=== PATIENT | male | born 1955 | race Caucasian/White ===

== ENCOUNTER → 2024-05-13 06:21 | Day surgery (SDC) | payer OTHER, SELFPAY ==
[2024-05-13 07:18] LABS: Glucose - Point of Care 168 mg/dl (70-99)
== END ==
LOC: GI 06:21
PROVIDERS: ATTENDING PHYSICIAN Internal Medicine
DX: Z12.11 Encounter for screening for malignant neoplasm of colon (principal); R19.5 Other fecal abnormalities; K64.8 Other hemorrhoids; K57.30 Diverticulosis of large intestine without perforation or abscess without bleeding; K55.20 Angiodysplasia of colon without hemorrhage; D49.0 Neoplasm of unspecified behavior of digestive system; D12.5 Benign neoplasm of sigmoid colon; D12.2 Benign neoplasm of ascending colon; K62.1 Rectal polyp
CPT/HCPCS: 45385; 45381; 45380; 88305; 82962

== ENCOUNTER 2024-07-22 06:11 | Day surgery (SDC) | payer OTHER, SELFPAY ==
[2024-07-22 10:15] VITALS: BMI 36.9
[2024-07-22 10:16] VITALS: BP 147/86; BMI 36.9
[2024-07-22 10:22] LABS: Glucose - Point of Care 161 mg/dl (70-99)
[2024-07-22 12:38] LABS: Glucose - Point of Care 184 mg/dl (70-99)
[2024-07-22 15:04] VITALS: BP 126/91
[2024-07-22 15:15] VITALS: BP 116/92
[2024-07-22 15:30] VITALS: BP 133/87
[2024-07-22 15:45] VITALS: BP 136/95
== END 2024-07-22 16:05 | disposition home or self-care (01) ==
LOC: SDS 06:11
PROVIDERS: ATTENDING PHYSICIAN Internal Medicine Gastroenterology
DX: C18.2 Malignant neoplasm of ascending colon (principal); K57.30 Diverticulosis of large intestine without perforation or abscess without bleeding; K64.0 First degree hemorrhoids
CPT/HCPCS: 45390; 88305; 82962; 88342

== ENCOUNTER → 2024-08-17 08:54 | Outpatient (REF) | payer OTHER, SELFPAY | LOC: RAD 08:54 | PROVIDERS: ATTENDING PHYSICIAN Surgery; FAMILY PHYSICIAN Family Medicine | DX: C18.9 Malignant neoplasm of colon, unspecified (principal) | CPT/HCPCS: 71260; 74177; Q9967 ==

== ENCOUNTER 2024-09-02 11:44 | Inpatient (IN) | payer OTHER, SELFPAY ==
[2024-08-20 10:51] LABS: Hematocrit 43.6 % (39.0-52.0); Hemoglobin 15.6 g/dL (13.0-18.0); Mean Corp Hgb Conc. 35.8 g/dL (33.0-37.0); Mean Corpuscular Hgb 31.5 pg (27.0-31.0); Mean Corpuscular Volume 88.1 fL (80.0-94.0); Mean Platelet Volume 10.6 fL (7.4-10.4); Platelet Count 243 10^3/uL (130-400); Red Blood Cell Count 4.95 10^6/uL (4.70-6.10); Red Cell Dist. Width 12.4 % (11.5-14.5); White Blood Cell Count 7.5 10^3/uL (4.8-10.8)
[2024-08-20 11:01] LABS: INR 0.93; PT 12.8 Sec (11.4-14.6)
[2024-08-20 11:02] LABS: APTT 29.6 Sec (23.4-35.0)
[2024-08-20 11:30] LABS: ALT (SGPT) 24 U/L (0-50); AST (SGOT) 19 U/L (17-59); Albumin 4.3 g/dl (3.5-5.0); Alkaline Phosphatase 78 U/L (38-126); Blood Urea Nitrogen 18 mg/dl (9-20); Calcium 9.6 mg/dl (8.4-10.2); Carbon Dioxide 29 mmol/L (22-30); Chloride 97 mmol/L (98-107); Glucose 186 mg/dl (70-99); Potassium 4.6 mmol/L (3.5-5.1); Sodium 134 mmol/L (135-145); Total Bilirubin 0.4 mg/dl (0.2-1.3); Total Protein 6.6 g/dl (6.3-8.2); eGFR > 60.00
[2024-08-20 11:58] LABS: CEA 2.24 ng/ml
[2024-08-20 12:46] LABS: Glycohemoglobin (HgbA1c) 7.1 % (4.0-5.6)
[2024-08-20 13:57] VITALS: BMI 36.7
--- NOTE | 2024-08-26 10:16 | PTCARENOTE ---
Patients 08/20 A1C 7.1- Marcia @ Dr. Back office notified
[2024-09-02] VITALS (10 sets, daily range): BP systolic 129–151; BP diastolic 86–100; BMI 36.7
[2024-09-02] MEDS: NEURONTIN 600 MG PO (12:46)
[2024-09-02] MEDS: ENTEREG 12 MG PO (12:46)
[2024-09-02] MEDS: TYLENOL 1000 MG PO (12:46)
[2024-09-02] MEDS: HEPARIN 5000 UNITS SC (12:47)
[2024-09-02 13:31] LABS: Glucose - Point of Care 138 mg/dl (70-99)
[2024-09-02 15:42] LABS: Glucose - Point of Care 134 mg/dl (70-99)
--- NOTE | 2024-09-02 20:34 | W.OR.COLCA ---
Addendum entered and electronically signed by Dustin Dial MD 09/02/24 20:42:
Patient's and son updated in waiting area.
Original Note:
Colon Cancer Post Op Note
Immediate Post Op
Primary Surgeon: Adi Dial MD
Assisting Surgeon: NINFA Terry
Pre-op Diagnosis: right colon cancer
Post-op Diagnosis: same
Procedure Performed: robotic right colectomy
Anesthesia Type: general plus local
Specimen / Cultures: right colon
Estimated Blood Loss: 100 cc
Complications: no immediate
Operative Findings: 1) ascending colon tattoo and associated mucosal clip marking EMR site 2) no obvious metastatic disease
Nunez in bladder.
Will send to med surg.
Colon Resection
Colon Resection
Operation performed with curative intent: Yes
Tumor Location: Ascending Colon
Right Hemicolectomy: Ileocolic and Right Colic
Other: patient s/p EMR of ascending colon polyp that came back adenocarcinoma
--- NOTE | 2024-09-02 20:51 | CON.HOSP ---
Family Physician
-
Family Physician: Dustin Martinez
Chief Complaint
-
status post robotic right colectomy
History of Present Illness
Mr. Anand Mendoza is a 69 yo man with hx essential HTN, HLD, DM, right colon cancer status post robotic right colectomy today. Medicine is asked to consult for medical management.
Patient seen post-op. He is groggy, denies significant pain. No chest pain or shortness of breath.
Medical History
Past Medical History
Past Medical History: Reports Other ( essential HTN, HLD, DM, right colon cancer status post robotic right colectomy 09/02/24)
Past Surgical History: Reports Other (see above )
Social History
Tobacco: Former Smoker
Alcohol: Occasional
Family History
Family History: Reviewed & Not Pertinent
Allergies / Home Medications
Allergies reflects when Allergies were last updated in [facility].
Home Medications with original date entered in [facility]
Allergy/Medication List:
Allergies
Allergy/AdvReac Type Severity Reaction Status Date / Time
No Known Allergies Allergy Verified 09/02/24 12:37
Home Medications
atorvastatin 10 mg tablet 10 mg PO HS 07/22/24
hydrochlorothiazide 25 mg tablet 25 mg PO DAILY 07/22/24
lisinopril 40 mg tablet 40 mg PO QPM 07/22/24
metformin 1,000 mg tablet 1,000 mg PO BID 07/22/24
repaglinide 2 mg tablet 2 mg PO TID 07/22/24
Nervive Tab 1 tab PO DAILY 08/26/24
semaglutide 1 mg/dose (4 mg/3 mL) subcutaneous pen injector (Ozempic) 1 mg SC FR 08/26/24
Review of Systems
-
History Source: Patient
A 12 point Review of Systems was completed except as noted: Yes
Physical Exam
Physical Exam
General: No Apparent Distress
HEENT: PERRLA
Respiratory: Clear; Negative Wheezes
Cardiac: S1/S2 and Regular Rhythm
GI: Other (surgical incision c/d/i)
Musculoskeletal: No Edema
Skin: Warm and Dry; Negative Rash
Neuro: AO x 3
Psych: Calm
Laboratory Results
-
PT 12.8 Sec (11.4-14.6) 08/20/24 09:30
INR 0.93 08/20/24 09:30
APTT 29.6 Sec (23.4-35.0) 08/20/24 09:30
Total Bilirubin 0.4 mg/dl (0.2-1.3) 08/20/24 09:30
AST 19 U/L (17-59) 08/20/24 09:30
ALT 24 U/L (0-50) 08/20/24 09:30
Alkaline Phosphatase 78 U/L (38-126) 08/20/24 09:30
Data Reviewed
-
Diagnostic Radiology: Report Reviewed by Me
Lab Data: Labs Reviewed
Impression / Plan
-
Mr. Anand Mendoza is a 69 yo man with hx essential HTN, HLD, DM, right colon cancer status post robotic right colectomy today. Medicine is asked to consult for medical management.
Right Colon Cancer
-s/p robotic right Colectomy by Dr. Dial today
-plan per CRS
-NPO except medications
-IVF
-standing IV Toradol, IV Dilaudid PRN, Reglan PRN
-BID Alvimopan
-standing Protonix
Essential HTN
-hold [employer] HCTZ
-SBP 150's in PACU, Ok to continue [employer] Lisinopril tomorrow with hold parameters
HLD
-hold statin while NPO
DM
-hold [employer] oral meds: Metformin, Repaglinide, Ozempic
-ISS low
DVT PPx
FULL CODE
[2024-09-02 20:56] LABS: Glucose - Point of Care 188 mg/dl (70-99)
[2024-09-02 21:13] LABS: % Basophils 0.2 % (0-2); % Immature Granulocytes 0.9 % (0-0.5); % Lymphocytes 5.6 % (20.5-51.1); % Neutrophils 90.3 % (42.2-75.2); Absolute Immature Granulocytes 0.2 10^3/uL (0-0.05); Absolute Lymphocytes 1.1 10^3/uL (1.2-3.4); Absolute Monocytes 0.6 10^3/uL (0.1-0.6); Absolute Neutrophils 17.2 10^3/uL (1.4-6.5); Hemoglobin 15.2 g/dL (13.0-18.0); Mean Corp Hgb Conc. 34.5 g/dL (33.0-37.0); Mean Corpuscular Hgb 31.3 pg (27.0-31.0); Mean Corpuscular Volume 90.7 fL (80.0-94.0); Nucleated Red Blood Cells % 0 % (-); Platelet Count 279 10^3/uL (130-400); Red Blood Cell Count 4.85 10^6/uL (4.70-6.10); Red Cell Dist. Width 12.4 % (11.5-14.5); White Blood Cell Count 19.1 10^3/uL (4.8-10.8)
[2024-09-02 21:29] LABS: Blood Urea Nitrogen 14 mg/dl (9-20); Calcium 8.6 mg/dl (8.4-10.2); Carbon Dioxide 23 mmol/L (22-30); Estimated Creatinine Clearance 120 ml/min; Glucose 206 mg/dl (70-99); Magnesium 2.1 mg/dl (1.6-2.3); eGFR > 60.00
[2024-09-02 21:41] LABS: Chloride 94 mmol/L (98-107); Potassium 4.4 mmol/L (3.5-5.1); Sodium 130 mmol/L (135-145)
[2024-09-02] MEDS: NORMOSOL-R/PLASMALYTE-A 1000 IV (22:15)
--- NOTE | 2024-09-02 23:00 | PTCARENOTE ---
Received patient from PACU. Pt AAOX3, Drowsy, family at bedside. stable vitals. No complaints at this time. Nunez cath draining yellow urine. Abdominal surgical sites CDI. POC reviewed with patient and family.
[2024-09-03] VITALS (7 sets, daily range): BP systolic 123–149; BP diastolic 67–90; PULSE 79; O2SAT 99; BMI 36.9
[2024-09-03] MEDS: TORADOL 10 MG IV ×5 (00:07→23:50)
[2024-09-03] MEDS: TYLENOL 650 MG PO ×7 (00:07→23:50)
[2024-09-03 00:11] LABS: Glucose - Point of Care 215 mg/dl (70-99)
[2024-09-03] MEDS: NOVOLOG FLEXPEN-LOW RESISTANCE 2 UNITS SC ×2 (00:45→06:23)
[2024-09-03 06:12] LABS: Glucose - Point of Care 206 mg/dl (70-99)
[2024-09-03] MEDS: NORMOSOL-R/PLASMALYTE-A 1000 IV ×2 (06:26→18:21)
[2024-09-03 06:37] LABS: % Basophils 0.1 % (0-2); % Immature Granulocytes 0.3 % (0-0.5); % Lymphocytes 5.4 % (20.5-51.1); % Monocytes 4.9 % (1.7-9.3); % Neutrophils 89.3 % (42.2-75.2); Absolute Lymphocytes 0.7 10^3/uL (1.2-3.4); Absolute Monocytes 0.6 10^3/uL (0.1-0.6); Hemoglobin 14.5 g/dL (13.0-18.0); Mean Corp Hgb Conc. 35.4 g/dL (33.0-37.0); Mean Corpuscular Hgb 31.1 pg (27.0-31.0); Nucleated Red Blood Cells % 0 % (-); Platelet Count 273 10^3/uL (130-400); Red Blood Cell Count 4.66 10^6/uL (4.70-6.10); Red Cell Dist. Width 12.2 % (11.5-14.5); White Blood Cell Count 12.3 10^3/uL (4.8-10.8)
[2024-09-03 06:58] LABS: Blood Urea Nitrogen 15 mg/dl (9-20); Calcium 8.4 mg/dl (8.4-10.2); Carbon Dioxide 23 mmol/L (22-30); Chloride 95 mmol/L (98-107); Estimated Creatinine Clearance > 125 ml/min; Glucose 235 mg/dl (70-99); Magnesium 2.2 mg/dl (1.6-2.3); Potassium 4.5 mmol/L (3.5-5.1); Sodium 130 mmol/L (135-145); eGFR > 60.00
[2024-09-03] MEDS: PROTONIX 40 MG PO (09:25)
[2024-09-03] MEDS: ENTEREG 12 MG PO ×2 (09:26→19:40)
--- NOTE | 2024-09-03 09:46 | W.PN.HOSP.TC ---
Today's Communication/Plan
-
see PN
Assessment / Plan
Assessment / Plan
69 yo man with hx essential HTN, HLD, DM, right colon cancer status post robotic right colectomy on 09/02/24 due to right colon cancer
A/P:
#R colon adenocarcinoma
s/p hemicolectomy
Outpatient Onc and ColorectalSx
Advance diet as per surgery
Pain mgmt
IVF
#Leukocytosis
reactive, postOP
improving off Abx
#Mild hyponatremia
check urine osm
follow BMP
#DM type 2 with neuropathy
Accuchecks, Insulin SS, DM diet whren appropriate
Hold oral antiglycemics
#Essential HTN
#HLD
Hold HCTZ
cont Lisinopril
FOllow BP trend
DVT ppx lovenox
Full code
I have spent at least 53min reviewing chart, test results, communication with familoy and direct patient care
Anticipated Discharge: > 48 hours
Subjective/Interval History
-
Date of Service: September 03, 2024
Objective Data
-
Labs:
Laboratory Results
09/03/24
06:02
WBC 12.3 H
Hgb 14.5
Hct 41.0
Plt Count 273
Sodium 130 L
Potassium 4.5
Chloride 95 L
Carbon Dioxide 23
BUN 15
Creatinine 0.7
Glucose 235 H
Calcium 8.4
Vital Signs:
Vital Signs
Temp Pulse Resp BP Pulse Ox
97.3 F 91 16 145/77 97
09/03/24 07:30 09/03/24 07:30 09/03/24 07:30 09/03/24 07:30 09/03/24 07:30
I&O
09/02/24 09/03/24 09/04/24
06:59 06:59 06:59
Intake Total 900 / 900
Output Total 840 / 840
Balance
Review of Systems
-
History Source: Patient
All other systems: Reviewed and negative
Physical Exam
-
General: No Apparent Distress
HEENT: Normocephalic
Respiratory: Clear to Auscultation
Cardiac: Regular Rhythm
GI: Soft, Nontender, Nondistended and Normal Bowel Sounds
Musculoskeletal: No Clubbing, No Cyanosis and No Edema
Neuro: Awake, Alert, Oriented and AO x 3
Psych: Calm
--- NOTE | 2024-09-03 10:10 | W.PN.CRS1 ---
Today's Communication / Plan
-
Clears.
Out of bed.
Lovenox.
DC Nunez.
Assessment/Plan
-
POD 1.
1. Afebrile. Heart rate 100 overnight, now 91. Will watch.
2. Urine output reasonable. Will have nursing DC Nunez.
3. Out of bed/PT.
4. Trial clears.
5. Lovenox.
6. Appreciate hospitalist help.
Subjective Data
Procedure
Robotic right colectomy on 09/02/2024.
Subjective Data
Date of Service: September 03, 2024
Sitting up in chair. No complaints. No nausea. Thirsty and hungry.
Objective Data
-
Vital Signs
Temp Pulse Resp BP Pulse Ox
97.3 F 91 16 145/77 97
09/03/24 07:30 09/03/24 07:30 09/03/24 07:30 09/03/24 07:30 09/03/24 07:30
Intake & Output
09/02/24 09/03/24 09/04/24
06:59 06:59 06:59
Intake Total 900 / 900
Output Total 840 / 840
Balance 60 / 60
Intake:
IV fluids (Total) 900 / 900
normosol 100 / 100
Output:
Urine, Nunez 840 / 840
Lab Results
09/03/24 06:02
09/03/24 06:02
Physical Exam
-
General: No Acute Distress
Chest: Clear
Cardiovascular: Regular Rate & Rhythm
Abdomen: Distended (Mild) and Tender (Mild incisional)
Extremities: No Edema and No Calf Tenderness
Incision: Clear, Dry, Intact and No Skin Erythema
[2024-09-03 11:49] LABS: Glucose - Point of Care 313 mg/dl (70-99)
[2024-09-03] MEDS: NOVOLOG FLEXPEN-LOW RESISTANCE 4 UNITS SC (12:35)
--- NOTE | 2024-09-03 14:15 | CM ---
Patient who is s/p robotic right colectomy on 09/02. Room air. Receiving IVF, SQ Lovenox, IV Toradol. Clear liquids. PT Eval pending.
Met with patient who resides with his in a 1 story house with 1 ROMY or ramp in garage.
The patient has been independent in ADLs and ambulation.
DME - [facility], [facility]
Prior VN, patient can't remember agency. [facility] per CM notes 11/19/08.
SNF - none
PCP - Dustin Martinez
Pharmacy - [facility] [address], [place]
Plan follow up after seen by PT.
[2024-09-03 17:14] LABS: Glucose - Point of Care 279 mg/dl (70-99)
[2024-09-03] MEDS: ZESTRIL 40 MG PO (18:17)
[2024-09-03] MEDS: LOVENOX 40 MG SC (18:20)
[2024-09-03] MEDS: NOVOLOG FLEXPEN-LOW RESISTANCE 3 UNITS SC (18:21)
[2024-09-03 21:38] LABS: Glucose - Point of Care 251 mg/dl (70-99)
[2024-09-03] MEDS: NOVOLOG FLEXPEN-LOW RESISTANCE SC (22:12)
[2024-09-04] MEDS: TYLENOL PO (04:35)
[2024-09-04] MEDS: TORADOL 10 MG IV ×2 (05:15→13:55)
[2024-09-04] MEDS: TYLENOL 650 MG PO ×2 (05:20→13:55)
[2024-09-04 06:09] LABS: % Basophils 0.2 % (0-2); % Eosinophils 0.5 % (0-6); % Immature Granulocytes 0.4 % (0-0.5); % Lymphocytes 16.5 % (20.5-51.1); % Monocytes 9.8 % (1.7-9.3); % Neutrophils 72.6 % (42.2-75.2); Absolute Eosinophils 0.1 10^3/uL (0-0.7); Absolute Lymphocytes 1.7 10^3/uL (1.2-3.4); Absolute Neutrophils 7.3 10^3/uL (1.4-6.5); Hematocrit 38.6 % (39.0-52.0); Hemoglobin 13.3 g/dL (13.0-18.0); Mean Corp Hgb Conc. 34.5 g/dL (33.0-37.0); Mean Corpuscular Hgb 30.6 pg (27.0-31.0); Mean Corpuscular Volume 88.7 fL (80.0-94.0); Mean Platelet Volume 9.3 fL (7.4-10.4); Nucleated Red Blood Cells % 0 % (-); Platelet Count 261 10^3/uL (130-400); Red Blood Cell Count 4.35 10^6/uL (4.70-6.10); Red Cell Dist. Width 12.4 % (11.5-14.5); White Blood Cell Count 10.1 10^3/uL (4.8-10.8)
[2024-09-04 06:24] LABS: Blood Urea Nitrogen 12 mg/dl (9-20); Calcium 8.6 mg/dl (8.4-10.2); Carbon Dioxide 28 mmol/L (22-30); Chloride 96 mmol/L (98-107); Estimated Creatinine Clearance > 125 ml/min; Glucose 183 mg/dl (70-99); Potassium 3.9 mmol/L (3.5-5.1); Sodium 130 mmol/L (135-145); eGFR > 60.00
[2024-09-04 07:04] VITALS: BMI 37.8
[2024-09-04 07:40] VITALS: BP 117/64
[2024-09-04 08:15] LABS: Glucose - Point of Care 188 mg/dl (70-99)
--- NOTE | 2024-09-04 08:47 | W.PN.GS2 ---
Addendum entered and electronically signed by Edmundo Wing MD 09/04/24 09:32:
Patient seen and examined. Agree with assessment plan as documented.
No complaints. Tolerated falls. Passing flatus and nonbloody stools. Ambulating. Voiding.
Gen: NAD
Abd: soft, obese, minimal tenderness, non-peritoneal, incisions c/d/i - no erythema, ecchymosis or drainage
Patient is a 69 yo male with h/o DM who is POD #2 Robotic right colectomy for right colon ca
AFVSS
Labs stable post op
Tolerating FLD
Passing flatus/stools
--LRD
--Analgesics prn
--D/C IVF
--OOB/Ambulate. Worked with PT yesterday
--Lovenox and SCDs for VTE ppx
--Medicine following for diabetic management
Tentative d/c later today if tolerating diet
Original Note:
Today's Communication / Plan
-
dispo planning
Assessment / Plan
-
69 yo male with h/o DM who is POD #2 Robotic right colectomy for right colon ca
AFVSS
Labs stable post op
Tolerating FLD
Passing flatus/stools
--Advance diet to Low res/ada diet
--Analgesics prn
--D/C IVF
--OOB/Ambulate. Worked with PT yesterday
--Lovenox and SCDs for VTE ppx
--Medicine following for diabetic management
Tentative d/c later today if tolerating diet
Subjective Data
-
Date of Service: September 04, 2024
Patient seen and examined at bedside. Denies n/v. Tolerating FLD. Incisional soreness, but pain well controlled. OOB to chair and ambulating. Passing flatus and some small loose bm's
Objective Data
-
Intake and Output
09/03/24 09/04/24 09/05/24
06:59 06:59 06:59
Intake Total 900 / 900 2120 / 2120 1220 / 1220
Output Total 840 / 840 480 / 480 175 / 175
Balance 60 / 60 1640 / 1640 1045 / 1045
Intake:
Oral fluids 1320 / 1320 500 / 500
IV fluids (Total) 900 / 900 800 / 800 720 / 720
normosol 100 / 100
Output:
Urine, Nunez 840 / 840 450 / 450
Urine, Voided 30 / 30 175 / 175
Other:
Number of approximated MODERATE 3
amounts of urine
Vital Signs
Temp Pulse Resp BP Pulse Ox
97.3 F 71 16 117/64 97
09/04/24 07:40 09/04/24 07:40 09/04/24 07:40 09/04/24 07:40 09/04/24 07:40
Lab Results
09/04/24 05:28
09/04/24 05:28
Calcium 8.6 mg/dl (8.4-10.2) 09/04/24 05:28
Magnesium 2.2 mg/dl (1.6-2.3) 09/03/24 06:02
Total Bilirubin 0.4 mg/dl (0.2-1.3) 08/20/24 09:30
AST 19 U/L (17-59) 08/20/24 09:30
ALT 24 U/L (0-50) 08/20/24 09:30
Alkaline Phosphatase 78 U/L (38-126) 08/20/24 09:30
Total Protein 6.6 g/dl (6.3-8.2) 08/20/24 09:30
Albumin 4.3 g/dl (3.5-5.0) 08/20/24 09:30
Physical Exam
-
NAD
ABD soft, minimal upper abdominal distention, mild tenderness to incisions
Incisions clear, dry, intact glue without erythema
[2024-09-04] MEDS: ENTEREG 12 MG PO (09:02)
[2024-09-04] MEDS: PROTONIX 40 MG PO (09:02)
[2024-09-04] MEDS: PRANDIN 2 MG PO ×2 (09:02→13:54)
[2024-09-04] MEDS: NOVOLOG FLEXPEN-LOW RESISTANCE 1 UNITS SC (09:03)
--- NOTE | 2024-09-04 11:30 | CM ---
Patient seen at bedside. Patient completed IMM and signed form placed on chart. Patient states that his is to pick him up in an hour. Patient with no concerns and no needs for VN. CM will continue to follow for discharge planning needs.
Plan; home with no needs.
[2024-09-04 11:59] LABS: Glucose - Point of Care 243 mg/dl (70-99)
--- NOTE | 2024-09-04 12:39 | W.DCSUMMARY ---
Discharge Summary
Discharge Data
Date of Admission: 09/02/24
Date of Discharge: 09/04/24
-
Pending Results: No
Hospital Course
This is a 69 yo male with a history of right colon cancer who presented for operative management with robotic right colectomy. He had no complications and followed an expected post operative course. He was followed by the hospitalist service during
his course of stay for management of chronic medical conditions including diabetes. Pain was well managed prior to discharge and diet was able to be advanced and well tolerated. He was dishcarged to home with spouse with outpatient follow up planned
in the coming weeks.
Discharge Plan
-
Patient Disposition: Home (Routine Discharge)
Discharge Diagnosis/Procedures: Robotic right colectomy
Condition: Good
Diet: Low Fiber and Diabetic, Carb Controlled
Activity: No strenuous activity
Additional Activity: Do not lift over 10lbs (gallon of milk)
Driving Restrictions: Wait until comfortable twisting/off narcotics
Bathing Restrictions: OK to Shower
Wound Care: Ok to wash incisions gently with soap and water. Avoid scrubbing or picking the glue off. Allow the glue to flake off on its own in 2-3 weeks
Activity Restrictions/Additional Instructions:
Call your surgeon if you have worsening pain, nausea with vomiting or a fever >100.5
Instructions: Low-fiber diet
Referrals:
Dustin Dial MD [Active] - in two to four weeks
Dustin Martinez DO [Family Provider] -
Prescriptions:
New
acetaminophen [acetaminophen] 325 mg tablet
650 mg PO Q4HPRN PRN (Reason: mild pain) Qty: 1 0RF
ibuprofen 200 mg tablet
400 - 600 mg PO Q6HPRN PRN (Reason: moderate pain) Qty: 1 0RF
oxycodone 5 mg tablet
5 mg PO Q4HPRN PRN (Reason: breakthrough/severe pain) Qty: 10 0RF
Continued
repaglinide 2 mg Tablet
2 mg PO TID
atorvastatin 10 mg Tablet
10 mg PO HS
metformin 1,000 mg Tablet
1,000 mg PO BID
hydrochlorothiazide 25 mg Tablet
25 mg PO DAILY
lisinopril 40 mg Tablet
40 mg PO QPM
Ozempic 1 mg/dose (4 mg/3 mL) Pen Injector
1 mg SC FR
Nervive Tab
1 tab PO DAILY
Discharge Orders:
Discharge Patient (As Directed); Ordered 09/04/24
Ordered By: Danita Pacheco
Discharge Date and Time
Print Language: SETSWANA
[2024-09-04] MEDS: NOVOLOG FLEXPEN-LOW RESISTANCE 2 UNITS SC (13:53)
--- NOTE | 2024-09-13 07:22 | PN.CDI ---
CDI
- -
CDI:
Physician Documentation Request
Admit Date: 09/02/24 11:44
Dear Doctor Jayro,
Please review the following and provide your response in the progress notes.
Clinical Indicators:
The diagnosis of 'Two out of thirty lymph nodes, positive for metastatic carcinoma (2/30)' was included in the signed path report.
Please indicate in your progress notes if you are in agreement that the above diagnosis is valid for this patient:
____ - Lymph node metastasis is a valid diagnosis (Please include it in your progress notes)
____ - Lymph node metastasis is not a valid diagnosis for this patient
____ - Lymph node metastasis is not yet confirmed but remains a suspected condition
____ - Other
____ - Unable to determine
Use of terms such as suspected, likely, concern for, or probable are acceptable for a diagnosis that is being evaluated, monitored or treated as if it exists and can be coded in the inpatient setting, when documented at the time of discharge.
Thank you,
Rosetta Silva
Coping Machine Operator
Please use your independent medical judgment in providing your response.
== END 2024-09-04 15:03 | disposition home or self-care (01) | DRG 330 ==
LOC: 2 SOUTH 11:44
PROVIDERS: ADMITTING PHYSICIAN Surgery; FAMILY PHYSICIAN Family Medicine; OTHER PHYSICIAN Student in an Organized Health Care Education/Training Program
PROC: 0DBF4ZZ Excision of Right Large Intestine, Percutaneous Endoscopic Approach (ICD-10-PCS; 2024-09-03)
DX: C18.2 Malignant neoplasm of ascending colon (principal); C77.2 Secondary and unspecified malignant neoplasm of intra-abdominal lymph nodes; E87.1 Hypo-osmolality and hyponatremia; I10 Essential (primary) hypertension; E78.5 Hyperlipidemia, unspecified; E11.9 Type 2 diabetes mellitus without complications; K66.0 Peritoneal adhesions (postprocedural) (postinfection); E66.01 Morbid (severe) obesity due to excess calories; Z68.37 Body mass index [BMI] 37.0-37.9, adult; Z79.84 Long term (current) use of oral hypoglycemic drugs; Z79.82 Long term (current) use of aspirin; Z79.899 Other long term (current) drug therapy; Z87.891 Personal history of nicotine dependence
CPT/HCPCS: 88309; 36415; 80048; 80053; 82378; 82962; 83036; 83735; 85025; 85027; 85610; 85730; 86850; 86900; 86901; 93005; 97116; 97162; J1335

== ENCOUNTER 2024-10-01 06:50 | Day surgery (SDC) | payer OTHER, SELFPAY ==
[2024-10-01 11:41] VITALS: BMI 37.3
[2024-10-01 11:42] VITALS: BP 136/85; BMI 37.3
[2024-10-01 12:10] LABS: Glucose - Point of Care 139 mg/dl (70-99)
[2024-10-01] MEDS: NORMOSOL-R/PLASMALYTE-A 1000 IV (12:18)
[2024-10-01 14:19] VITALS: BP 120/68
[2024-10-01 14:30] VITALS: BP 120/68
[2024-10-01 14:45] VITALS: BP 134/76
[2024-10-01 14:52] VITALS: BP 137/85
[2024-10-01 15:00] VITALS: BP 134/78
== END 2024-10-01 15:50 | disposition home or self-care (01) ==
LOC: SDS 06:50
PROVIDERS: ATTENDING PHYSICIAN Surgery
DX: C18.2 Malignant neoplasm of ascending colon (principal)
CPT/HCPCS: 36561; 71045; 76000; 82962; C1788

== ENCOUNTER → 2024-10-04 08:40 | Outpatient (REF) | payer OTHER, SELFPAY ==
[2024-10-04 13:19] LABS: % Basophils 0.4 % (0-2); % Eosinophils 3.5 % (0-6); % Immature Granulocytes 0.3 % (0-0.5); % Lymphocytes 20.1 % (20.5-51.1); % Monocytes 9.9 % (1.7-9.3); % Neutrophils 65.8 % (42.2-75.2); Absolute Eosinophils 0.3 10^3/uL (0-0.7); Absolute Lymphocytes 1.5 10^3/uL (1.2-3.4); Absolute Monocytes 0.7 10^3/uL (0.1-0.6); Hematocrit 43.3 % (39.0-52.0); Hemoglobin 14.8 g/dL (13.0-18.0); Mean Corp Hgb Conc. 34.2 g/dL (33.0-37.0); Mean Corpuscular Hgb 30.6 pg (27.0-31.0); Mean Corpuscular Volume 89.5 fL (80.0-94.0); Mean Platelet Volume 9.5 fL (7.4-10.4); Platelet Count 295 10^3/uL (130-400); Red Blood Cell Count 4.84 10^6/uL (4.70-6.10); Red Cell Dist. Width 12.4 % (11.5-14.5); White Blood Cell Count 7.5 10^3/uL (4.8-10.8)
[2024-10-04 13:58] LABS: ALT (SGPT) 28 U/L (0-50); AST (SGOT) 19 U/L (17-59); Albumin 4.3 g/dl (3.5-5.0); Alkaline Phosphatase 72 U/L (38-126); Blood Urea Nitrogen 20 mg/dl (9-20); Calcium 9.4 mg/dl (8.4-10.2); Carbon Dioxide 30 mmol/L (22-30); Chloride 92 mmol/L (98-107); Glucose 178 mg/dl (70-99); Potassium 4.1 mmol/L (3.5-5.1); Sodium 132 mmol/L (135-145); Total Bilirubin 0.5 mg/dl (0.2-1.3); Total Protein 6.5 g/dl (6.3-8.2); eGFR > 60.00
== END ==
LOC: OIDL 08:40
PROVIDERS: ATTENDING PHYSICIAN Internal Medicine Hematology & Oncology
DX: C18.2 Malignant neoplasm of ascending colon (principal)
CPT/HCPCS: 80053; 85025

== ENCOUNTER → 2024-12-13 11:24 | Outpatient (REF) | payer OTHER, SELFPAY ==
[2024-12-13 11:30] LABS: % Basophils 0.4 % (0-2); % Eosinophils 2.1 % (0-6); % Immature Granulocytes 0.2 % (0-0.5); % Lymphocytes 26.6 % (20.5-51.1); % Monocytes 15.3 % (1.7-9.3); % Neutrophils 55.4 % (42.2-75.2); Absolute Eosinophils 0.1 10^3/uL (0-0.7); Absolute Lymphocytes 1.4 10^3/uL (1.2-3.4); Absolute Monocytes 0.8 10^3/uL (0.1-0.6); Absolute Neutrophils 2.9 10^3/uL (1.4-6.5); Hematocrit 41.5 % (39.0-52.0); Hemoglobin 14.8 g/dL (13.0-18.0); Mean Corp Hgb Conc. 35.7 g/dL (33.0-37.0); Mean Corpuscular Hgb 32.7 pg (27.0-31.0); Mean Corpuscular Volume 91.8 fL (80.0-94.0); Mean Platelet Volume 8.8 fL (7.4-10.4); Platelet Count 122 10^3/uL (130-400); Red Blood Cell Count 4.52 10^6/uL (4.70-6.10); Red Cell Dist. Width 17.7 % (11.5-14.5); White Blood Cell Count 5.2 10^3/uL (4.8-10.8)
== END ==
LOC: OIDL 11:24
PROVIDERS: ATTENDING PHYSICIAN Internal Medicine Hematology & Oncology
DX: C18.2 Malignant neoplasm of ascending colon (principal)
CPT/HCPCS: 85025

== ENCOUNTER 2025-01-25 14:34 | Inpatient (IN) | payer OTHER, SELFPAY ==
[2025-01-25] VITALS (16 sets, daily range): BP systolic 123–167; BP diastolic 74–110; BMI 35.8
--- NOTE | 2025-01-25 13:15 | ED.GENMED ---
History of Present Illness
General
Chief Complaint: Allergic Reaction
Time Seen by Provider: 01/25/25 12:54
History of Present Illness
History of Present Illness:
Patient is a 69-year-old man with history of cancer on chemotherapy presenting to the emergency department with an allergic reaction. Patient was getting his 9th infusion of oxaliplatin. Shortly after it began he developed redness tongue swelling
and lip swelling. He was given Solu-Medrol Pepcid and epinephrine x 2 as well as Benadryl. He states that his symptoms were worsening upstairs at [facility] however since he has been in the emergency department they have slowly started
to improve. He denies any difficulty swallowing secretions. No shortness of breath. He states the redness has improved. He is on lisinopril. He took his last dose last night. No history of prior allergic reactions.
Phy Exam
Physical Exam
Physical Exam:
GENERAL: in no acute distress
HEENT: normocephalic, extraocular movements intact, moist oral mucosa, significant tongue swelling only able to visualize portion of the posterior oropharynx, no significant lip swelling, no stridor
NECK: normal inspection
RESPIRATORY: no respiratory distress, clear to auscultation bilaterally
CARDIOVASCULAR: regular rate and rhythm
EXTREMITIES: non-tender, no edema/swelling
NEUROLOGIC: awake and alert, moves all extremities
SKIN: warm, no hives
Course
Orders/Labs/Results
Orders:
Orders
01/25/25 14:07
Admit/Transfer Patient As Directed
Co-Sign Provider:
Level of Care: Inpatient admission
Assign to:: Telemetry
Physician / Group: [email or web address]
Diagnosis: Angioedema of tongue swelling and lip swelling
Reason for Telemetry: Other
Other Reason for Telemetry: Angioedema of tongue swelling and lip swelling
Date to Stop Telemetry: 01/27/25
Time to Stop Telemetry: 11:00
Reason for Hospitalization: Angioedema of tongue swelling and lip swelling
Expected length of stay greater than two midnights?: Yes
ELOS- Estimated Length of Stay in days: 2
I certify the patient meets the requirements for IP care: Yes
01/25/25 14:11
Code Status As Directed
Resuscitation Status: Full Code
01/27/25 11:00
DC Protocol for Telemetry ONCE
Vital Signs
Initial and Last Documented VS:
Initial Vital Signs
Pulse Resp
102 20
01/25/25 12:54 01/25/25 12:54
Last Documented Vital Signs
Temp Pulse Resp BP Pulse Ox
98.9 F 111 16 136/76 100
01/25/25 12:55 01/25/25 14:00 01/25/25 14:06 01/25/25 14:00 01/25/25 14:06
MDM/Problems Addressed
Differential Diagnosis Includes:
Patient is a 69-year-old male presenting to the emergency department with an allergic reaction and tongue swelling that has slowly started to improve. On arrival patient's vitals are notable for heart rate in the low 100s. On exam he does have
significant tongue swelling. This could be related to lisinopril or delayed hypersentivity reaction to oxyplatin. He does state his symptoms are slowly improving which is reassuring. He has received medications. We will continue to monitor. I
did discuss with patient and his family about awake intubation which they have consented . If his symptoms worsen his CODE STATUS is full code.
*Critical Care Note
Total Time (30-74mins, 75-104mins- exclusive of procedures): 45
comment:
Critical care statement: A total of 45 minutes of critical care time was provided for this patient. This includes management of unstable vital signs, evaluation of the patient at bedside, reviewing the patient's pertinent medical records, ordering
and reviewing studies, arranging urgent treatment with development of a management plan, evaluating patient's response to treatment, frequent reassessment, and discussion with consultants. This time was separate from time utilized to perform the
aforementioned documented procedures.
Update Note
Update Note:
On multiple reassessments patient states his symptoms have been improving. His vitals remained stable. He continues to protect his airway. Patient will need admission for airway monitoring.
ED Attending Note
-
Portions of this chart may have been created with voice recognition software.� Occasional wrong word or��sound alike� substitutions may have occurred due to the inherent limitations of voice recognition software.
Discharge Plan
Departure
Patient Disposition: Admit
Date of Disposition: 01/25/25
Time of Disposition: 13:50
Presentation/result/management discussed w/ accepting MD/DO: Hospitalist
Discharge Problem:
Angioedema
Interventions
Interventions:
*Risk Screen - Suicide Last Done: 01/25/25 13:01
*General Assessment Last Done: 01/25/25 13:01
*Neglect/Abuse Screening Last Done: 01/25/25 13:01
*ED- Fall Risk Assessment Last Done: 01/25/25 13:00
*ED COVID-19 Vaccine History Last Done: 01/25/25 13:00
ED- Cardiac Assessment Last Done: 01/25/25 13:02
ED- Pulmonary Assessment Last Done: 01/25/25 13:02
ED-Skin Assessment Last Done: 01/25/25 13:02
--- NOTE | 2025-01-25 14:02 | HPS.HSE ---
Family Physician
-
Family Physician: Dustin Martinez
Chief Complaint
-
tongue swelling and lip swelling
History of Present Illness
HPI
69MHX Colon CA, s/p robotic right Colectomy (09/02/24) on chemotherapy seen at ER for allergic reaction.
- he is getting 9th infusion of oxaliplatin
- Soon after chemo began he developed redness tongue swelling and lip swelling.
- Treated with IV Solu-Medrol + IV Pepcid + Epinephrine x 2 + IV Benadryl.
- symptoms were worsening upstairs at [facility]
- since at ER, slowly started to improve - He states the redness has improved.
- denies any difficulty swallowing secretions.
- No shortness of breath.
- He is on lisinopril - last dose last night. No history of prior allergic reactions.
HX HTN, HLD, DM, right colon cancer status post robotic right colectomy
Medical History
Past Medical History
Past Medical History: Reports CAD (colon ca s/p robotic colectomy ), HTN and Hypercholesterolemia
Past Surgical History: Reports Bowel Resection (colon ca s/p robotic colectomy )
Social History
Tobacco: Non-smoker
Alcohol: None
Drug: None
Family History
Family History: Not pertinent
Allergies / Home Medications
Allergies reflects when Allergies were last updated in [employer].
Home Medications with original date entered in [facility] [employer]
Allergy/Medication List:
Allergies
Allergy/AdvReac Type Severity Reaction Status Date / Time
lisinopril Allergy angioedema Verified 01/25/25 13:27
Home Medications
atorvastatin 10 mg tablet 10 mg PO HS High Cholesterol 07/22/24
hydrochlorothiazide 25 mg tablet 25 mg PO DAILY Fluid Retention/Swelling 07/22/24
lisinopril 40 mg tablet 40 mg PO QPM Blood Pressure 07/22/24
metformin 1,000 mg tablet 1,000 mg PO BID Diabetes 07/22/24
repaglinide 2 mg tablet 2 mg PO TID Diabetes 07/22/24
Nervive Tab 1 tab PO DAILY Supplement 08/26/24
semaglutide 1 mg/dose (4 mg/3 mL) subcutaneous pen injector (Ozempic) 1 mg SC FR Diabetes 08/26/24
acetaminophen 325 mg tablet 650 mg (2 x 325 mg) PO Q4HPRN PRN mild pain #1 tab 09/04/24
ibuprofen 200 mg tablet 400 - 600 mg (2 - 3 x 200 mg) PO Q6HPRN PRN moderate pain #1 tab 09/04/24
Review of Systems
-
Constitutional: Reports No Symptoms
EENT: Reports See HPI and Mouth Swelling
Respiratory: Reports No Symptoms
Cardiac: Reports No Symptoms
Abdomen/GI: Reports No Symptoms
: Reports No Symptoms
Musculoskeletal: Reports No Symptoms
Skin: Reports No Symptoms
Neurological: Reports No Symptoms
Endocrine: Reports No Symptoms
Hematologic/Lymphatic: Reports No Symptoms
Psych: Reports No Symptoms
Physical Exam
Vital Signs
Vital Signs
Temp Pulse Resp BP Pulse Ox
98.9 F 106 19 136/79 100
01/25/25 12:55 01/25/25 13:30 01/25/25 13:30 01/25/25 13:30 01/25/25 13:36
Physical Exam
General: Well Developed, Well Nourished and No Apparent Distress
HEENT: Other (tongue swelling , improved lip swelling )
Respiratory: Clear
Cardiac: S1/S2 and Regular Rhythm; No Murmur or Rub
GI: Soft, Non Tender, Non Distended and Normal Bowel Sounds; No Organomegaly
Rectal: Deferred by Provider
Musculoskeletal: No Clubbing, No Cyanosis and No Edema
Skin: No Rash
Neuro: Nonfocal/grossly intact
Data Reviewed
-
Old Records: Reviewed
Impression/Plan
-
Vital Signs
Temp Pulse Resp BP Pulse Ox
98.9 F 106 19 136/79 100
01/25/25 12:55 01/25/25 13:30 01/25/25 13:30 01/25/25 13:30 01/25/25 13:36
ASSESSMENT & PLAN
Pending Rx reconciliation
Angioedema of tongue swelling and lip swelling
- presumed allergic reaction to Lisinopri
- S/P IV Solu-Medrol + IV Pepcid + Epinephrine x 2 + IV Benadryl- cont
- IV decadron2 mf qh
- Observe VSS
- Clear - ADAT
- IV NS
HX Colon CA s/p robotic right Colectomy by Dr. Dial(09/02/24)
- f/u with [facility] for current Chemo
Essential HTN
-hold [employer] Lisinopril
HLD
- c/w Stain
DM
- On clear diet thus de escalade Lantus to [address] of 72 units daily
- ISS moderate
- hold [employer] FINISHER o Metformin
- hold Repaglinide
DVT Px: LMWH
Code: Full
IP TLM
[2025-01-25 16:43] LABS: Glucose - Point of Care 376 mg/dl (70-99)
[2025-01-25] MEDS: APRESOLINE 10 MG IV (17:35)
[2025-01-25] MEDS: NSS 1000 IV (17:36)
[2025-01-25] MEDS: DECADRON 2 MG IV (17:38)
[2025-01-25 18:04] LABS: Hematocrit 40.3 % (39.0-52.0); Hemoglobin 14.7 g/dL (13.0-18.0); Mean Corp Hgb Conc. 36.5 g/dL (33.0-37.0); Mean Corpuscular Hgb 35.8 pg (27.0-31.0); Mean Corpuscular Volume 98.1 fL (80.0-94.0); Mean Platelet Volume 9.9 fL (7.4-10.4); Platelet Count 104 10^3/uL (130-400); Red Blood Cell Count 4.11 10^6/uL (4.70-6.10); Red Cell Dist. Width 15.9 % (11.5-14.5); White Blood Cell Count 9.1 10^3/uL (4.8-10.8)
[2025-01-25 18:06] LABS: AST (SGOT) 34 U/L (17-59); Alkaline Phosphatase 110 U/L (38-126); Blood Urea Nitrogen 16 mg/dl (9-20); Calcium 9.2 mg/dl (8.4-10.2); Carbon Dioxide 19 mmol/L (22-30); Chloride 104 mmol/L (98-107); Estimated Creatinine Clearance > 125 ml/min; Glucose 426 mg/dl (70-99); Potassium 4.2 mmol/L (3.5-5.1); Sodium 132 mmol/L (135-145); Total Bilirubin 0.7 mg/dl (0.2-1.3); Total Protein 6.3 g/dl (6.3-8.2); eGFR > 60.00
[2025-01-25 18:17] LABS: ALT (SGPT) 50 U/L (0-50)
[2025-01-25] MEDS: NOVOLOG FLEXPEN-MODERATE RESISTANCE 9 UNITS SC (18:19)
[2025-01-25] MEDS: NOVOLOG FLEXPEN 12 UNITS SC (18:19)
[2025-01-25] MEDS: LOVENOX 40 MG SC (21:15)
[2025-01-25] MEDS: LIPITOR 10 MG PO (21:15)
[2025-01-25] MEDS: NSS (PRESERVATIVE FREE) 8 ML IV (21:15)
[2025-01-25] MEDS: PEPCID 20 MG IV (21:16)
[2025-01-25 21:32] LABS: Glucose - Point of Care 368 mg/dl (70-99)
[2025-01-26 00:18] VITALS: BP 163/86
[2025-01-26 02:28] VITALS: BP 109/65
[2025-01-26] MEDS: DECADRON 2 MG IV (04:43)
[2025-01-26 05:31] LABS: % Immature Granulocytes 0.5 % (0-0.5); % Lymphocytes 11.1 % (20.5-51.1); % Monocytes 4.1 % (1.7-9.3); % Neutrophils 84.3 % (42.2-75.2); Absolute Lymphocytes 0.7 10^3/uL (1.2-3.4); Absolute Monocytes 0.3 10^3/uL (0.1-0.6); Absolute Neutrophils 5.3 10^3/uL (1.4-6.5); Hematocrit 37.1 % (39.0-52.0); Hemoglobin 13.6 g/dL (13.0-18.0); Mean Corp Hgb Conc. 36.7 g/dL (33.0-37.0); Mean Corpuscular Hgb 35.2 pg (27.0-31.0); Mean Corpuscular Volume 96.1 fL (80.0-94.0); Mean Platelet Volume 9.4 fL (7.4-10.4); Nucleated Red Blood Cells % 0 % (-); Platelet Count 119 10^3/uL (130-400); Red Blood Cell Count 3.86 10^6/uL (4.70-6.10); Red Cell Dist. Width 15.7 % (11.5-14.5); White Blood Cell Count 6.3 10^3/uL (4.8-10.8)
[2025-01-26 06:05] LABS: Blood Urea Nitrogen 16 mg/dl (9-20); Calcium 9.2 mg/dl (8.4-10.2); Carbon Dioxide 22 mmol/L (22-30); Chloride 100 mmol/L (98-107); Estimated Creatinine Clearance > 125 ml/min; Glucose 304 mg/dl (70-99); Potassium 3.9 mmol/L (3.5-5.1); Sodium 133 mmol/L (135-145); eGFR > 60.00
[2025-01-26 07:24] VITALS: BP 129/71
[2025-01-26 07:57] LABS: Glucose - Point of Care 315 mg/dl (70-99)
[2025-01-26] MEDS: NSS (PRESERVATIVE FREE) 8 ML IV (07:58)
[2025-01-26] MEDS: PEPCID 20 MG IV (07:58)
[2025-01-26] MEDS: NOVOLOG FLEXPEN-MODERATE RESISTANCE 7 UNITS SC ×2 (08:01→12:02)
[2025-01-26] MEDS: LANTUS 0.35 UNITS SC ×2 (08:03→09:51)
[2025-01-26] MEDS: ORETIC 25 MG PO (08:17)
--- NOTE | 2025-01-26 09:54 | W.PN.HOSP.TC ---
Addendum entered and electronically signed by Kala Mireles MD 01/26/25 18:03:
Addendum
Patient remained hemodynamic stable. Blood sugar is controlled. Patient would like to go home. No shortness of breath or swallowing difficulty
Total discharge time spent to see the patient, examine the patient, review discharge instructions around 45 minutes
Original Note:
Today's Communication/Plan
-
likely dc later today
Focus on high blood glucose control
Assessment / Plan
Assessment / Plan
Physical Exam
General: Well Developed, obese, Well Nourished and No Apparent Distress
HEENT: Other (tongue is normal, no swelling , no lip swelling )
Respiratory: Clear
Cardiac: S1/S2 and Regular Rhythm; No Murmur or Rub
GI: Soft, Non Tender, Non Distended and Normal Bowel Sounds; No Organomegaly
Musculoskeletal: No Clubbing, No Cyanosis and No Edema
Skin: No Rash
Neuro: Nonfocal/grossly intact
Psych: calm
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
Doubt reaction to lisinopril due to reaction happening shortly with the infusion of the chemotherapy and lisinopril as a chronic medications
His symptoms resolved. No more swelling. Eating normally. No need to continue with the steroid therapy to also avoid uncontrolled diabetes.
Resumed diabetic diet already
# Mild thrombocytopenia, likely chemotherapy induced
# Hyponatremia, no confusion. Chronic
HX Colon CA s/p robotic right Colectomy by Dr. Dial(09/02/24)
- f/u with [facility] for current Chemo . Primary oncologist Dr. Barone. History of chemotherapy induced peripheral neuropathy
Essential HTN
can resume HCTZ now and lisinopril if few days
DM
HGB A1 C around 8
Uncontrolled hyperglycemia due to steroids.
Will place him back on his usual Lantus dose which is total 72 units daily. Will give Premeal insulin.
Total time spent to see the patient, examine the patient, review data and lab results, discuss treatment plan with patient, nursing staff around 55 minutes.
Anticipated Discharge: Within 24 hours
Subjective/Interval History
-
Date of Service: January 26, 2025
Doing better
no swelling, able to swallow normally
no sob
Objective Data
-
Labs:
Laboratory Results
01/26/25
05:13
WBC 6.3
Hgb 13.6
Hct 37.1 L
Plt Count 119 L
Sodium 133 L
Potassium 3.9
Chloride 100
Carbon Dioxide 22
BUN 16
Creatinine 0.7
Glucose 304 H
Calcium 9.2
Vital Signs:
Vital Signs
Temp Pulse Resp BP Pulse Ox
97.7 F 79 17 129/71 98
01/26/25 07:24 01/26/25 07:24 01/26/25 07:24 01/26/25 07:24 01/26/25 07:24
I&O
01/25/25 01/26/25 01/27/25
06:59 06:59 06:59
Intake Total 3120 / 3120
Output Total 850 / 850
Balance 2270 / 2270
[2025-01-26] MEDS: FLUSH (NSS) 1 FLUSH IV (09:56)
[2025-01-26 10:54] VITALS: BP 143/69
[2025-01-26 11:39] LABS: Glucose - Point of Care 329 mg/dl (70-99)
[2025-01-26] MEDS: NOVOLOG FLEXPEN 15 UNITS SC (12:01)
--- NOTE | 2025-01-26 15:10 | CM ---
Addendum entered by Lizeth Cosby 01/26/25 15:15:
Met with patient who resides with his in a 1 story house with 1 [address] or ramp in garage.
The patient has been independent in ADLs and ambulation.
DME - [facility]
PCP - Dustin Martinez
Pharmacy - [address]
Original Note:
Patient seen at bedside. Admitted with angioedema due to reaction from chemo. Patient states that his will drive him home at discharge. Patient with no concerns and no needs for VN. CM will continue to follow for discharge planning needs;
possible discharge later today.
Plan; home with no needs.
--- NOTE | 2025-01-26 15:32 | PTCARENOTE ---
patient refused last set of vital signs. he said, 'I am leaving now!, I waited too long for Dr. Mireles to put in my discharge!'. I informed him that I couldn't discharge him until that was done and she felt he was ready to leave. patient ambulated
to lobby with his belongings and his .
--- NOTE | 2025-01-26 17:58 | W.DCSUMMARY ---
Discharge Summary
Discharge Data
Date of Admission: 01/25/25
Date of Discharge: 01/26/25
-
Pending Results: No
Hospital Course
69 years old male presented to the emergency department with an allergic reaction. Patient was getting his 9th infusion of oxaliplatin when he suddenly developed redness/swelling of the tongue and lips. Patient was given IV
steroid/Pepcid/epinephrine as well as Benadryl. By the time he arrived to the hospital, his symptoms started to improve. Blood work did not show any leukocytosis. He was given another steroid injection. Patient was monitored overnight, he did
not develop shortness of breath or swallowing difficulty. Patient reported that tongue and lip swelling had resolved. He remained hemodynamically stable and was discharged home in a stable condition. His oncologist was aware of the reaction and
planning to make changes to his chemotherapy. Patient was advised to resume lisinopril after short time to avoid over reaction.
Discharge Plan
-
Patient Disposition: Home (Routine Discharge)
Discharge Diagnosis/Procedures: Angioedema, likely secondary to chemotherapy
Hold lisinopril for 3 days only
You can use Benadryl(ntmo-mww-uesehmr medication) as needed
Diet: Low Sodium and Diabetic, Carb Controlled
Referrals:
Dustin Martinez, DO [Family Provider] -
Prescriptions:
New
diphenhydramine HCl [Benadryl Allergy] 25 mg tablet
25 mg PO TID PRN (Reason: allergic reaction) Qty: 10 0RF
Continued
repaglinide 2 mg Tablet
2 mg PO MEALS
atorvastatin 10 mg Tablet
10 mg PO HS
metformin 1,000 mg Tablet
1,000 mg PO BID
hydrochlorothiazide 25 mg Tablet
25 mg PO DAILY
Ozempic 1 mg/dose (4 mg/3 mL) Pen Injector
1 mg SC FR
prochlorperazine maleate 10 mg tablet
10 mg PO Q8HPRN PRN (Reason: nausea)
ondansetron 8 mg tablet,disintegrating
8 mg PO TIDPRN PRN (Reason: nausea)
insulin glargine [Lantus Solostar U-100 Insulin] 100 unit/mL (3 mL) insulin pen
72 unit SC DAILY
Discontinued
oxaliplatin 100 mg/20 mL Solution
176 mg IV . DIRECTED
fluorouracil 500 mg/10 mL Solution
5,860 mg IV . DIRECTED
No Action
lisinopril 40 mg Tablet
40 mg PO QPM
Discharge Orders:
Discharge Patient (As Directed); Ordered 01/26/25
Ordered By: Kala Mireles
Discharge Date and Time
Discharge Date/Time: 01/26/25 14:59
Print Language: EQUATORIAL GUINEAN
== END 2025-01-26 14:59 | disposition home or self-care (01) | DRG 376 ==
LOC: 3 WEST ACU 14:34
PROVIDERS: ADMITTING PHYSICIAN Internal Medicine; ATTENDING PHYSICIAN Internal Medicine; EMERGENCY PHYSICIAN Student in an Organized Health Care Education/Training Program; FAMILY PHYSICIAN Family Medicine
DX: C18.9 Malignant neoplasm of colon, unspecified (principal); T45.1X5A Adverse effect of antineoplastic and immunosuppressive drugs, initial encounter; T78.3XXA Angioneurotic edema, initial encounter; I10 Essential (primary) hypertension; E11.9 Type 2 diabetes mellitus without complications; E78.00 Pure hypercholesterolemia, unspecified; Z79.84 Long term (current) use of oral hypoglycemic drugs; Z79.4 Long term (current) use of insulin; I25.10 Atherosclerotic heart disease of native coronary artery without angina pectoris; Z79.85 Long-term (current) use of injectable non-insulin antidiabetic drugs
CPT/HCPCS: 80048; 80053; 82962; 83036; 85025; 85027; 96374; 99291

== ENCOUNTER → 2025-03-22 08:14 | Outpatient (REF) | payer OTHER, SELFPAY | LOC: RAD 08:14 | PROVIDERS: ATTENDING PHYSICIAN Internal Medicine Hematology & Oncology; FAMILY PHYSICIAN Family Medicine | DX: C18.2 Malignant neoplasm of ascending colon (principal) | CPT/HCPCS: 71260; 74177; Q9967 ==

== ENCOUNTER 2025-08-24 06:26 | Day surgery (SDC) | payer OTHER, SELFPAY ==
[2025-08-24 08:14] VITALS: BP 144/89
[2025-08-24 08:20] VITALS: BMI 37.3
[2025-08-24 08:22] VITALS: BP 144/89
[2025-08-24 09:34] LABS: Glucose - Point of Care 148 mg/dl (70-99)
[2025-08-24 10:24] VITALS: BP 116/76
[2025-08-24 10:30] VITALS: BP 131/85
[2025-08-24 10:45] VITALS: BP 150/96
== END 2025-08-24 11:05 | disposition home or self-care (01) ==
LOC: SDS 06:26
PROVIDERS: ATTENDING PHYSICIAN Internal Medicine Gastroenterology
DX: Z12.11 Encounter for screening for malignant neoplasm of colon (principal); K57.30 Diverticulosis of large intestine without perforation or abscess without bleeding; K64.0 First degree hemorrhoids; Z85.038 Personal history of other malignant neoplasm of large intestine; Z98.0 Intestinal bypass and anastomosis status
CPT/HCPCS: G0105; 82962

== ENCOUNTER → 2025-09-13 10:45 | Outpatient (REF) | payer OTHER, SELFPAY ==
[2025-09-13 12:06] LABS: Hematocrit 41.1 % (39.0-52.0); Hemoglobin 14.7 g/dL (13.0-18.0); Mean Corp Hgb Conc. 35.8 g/dL (33.0-37.0); Mean Corpuscular Volume 86.5 fL (80.0-94.0); Nucleated Red Blood Cells % 0 % (-); Platelet Count 225 10^3/uL (130-400); Red Cell Dist. Width 12.3 % (11.5-14.5)
[2025-09-13 12:35] LABS: ALT (SGPT) 29 U/L (0-50); AST (SGOT) 22 U/L (17-59); Albumin 4.2 g/dl (3.5-5.0); Alkaline Phosphatase 98 U/L (38-126); Blood Urea Nitrogen 12 mg/dl (9-20); Calcium 9.4 mg/dl (8.4-10.2); Carbon Dioxide 28 mmol/L (22-30); Chloride 91 mmol/L (98-107); Glucose 200 mg/dl (70-99); Potassium 4.2 mmol/L (3.5-5.1); Sodium 127 mmol/L (135-145); Total Protein 6.6 g/dl (6.3-8.2); eGFR > 60.00
[2025-09-13 16:04] LABS: CEA 3.62 ng/ml
[2025-09-14 12:48] LABS: TSH 1.79 uIU/ml (0.47-4.68)
== END ==
LOC: REG 10:45
PROVIDERS: ATTENDING PHYSICIAN Internal Medicine Hematology & Oncology; FAMILY PHYSICIAN Family Medicine
DX: C18.2 Malignant neoplasm of ascending colon (principal)
CPT/HCPCS: 36415; 80053; 82248; 82378; 84443; 85025